=== PATIENT | male | born 1990 | race Caucasian/White ===

== ENCOUNTER 2022-11-11 11:40 | Outpatient (OUT) | payer SELFPAY ==
--- NOTE | 2022-11-11 12:09 | XR_ITS ---
The [address] [address] Patient Name: TERRELL BRASWELL MRN: [id number] date: 1990 Sex: M Assigned Patient Location: LAB Current Patient Location: LAB Accession/Order Number: [id number] Exam Date: 11/11/2022 12:31 Report Date: 11/11/2022 12:38 At the request of: YANNICK PLATA Procedure: XR chest 2V EXAM: XR chest 2V HISTORY: R22.2 COMPARISON: None. TECHNIQUE: Upright PA and lateral chest x-ray FINDINGS: The heart is not enlarged and the vasculature is not distended. No acute infiltrate, effusion or pneumothorax is identified. Mild scoliosis the spine is noted. A metallic foreign body projects over the right scapula. XR/XR chest 2V IMPRESSION: No acute infiltrate or evidence of cardiac decompensation. If the reported lump on the sternum is soft tissue, then ultrasound is recommended. A CT study of the chest without contrast may also be helpful. Electronically authenticated by: KATIE MENDOZA Date: 11/11/2022 12:38
[2022-11-11 12:20] LABS: Basophils Percent Auto 0.6 % (0.2-2.0); Eosinophils Absolute Auto 0.1 10^3/uL (0.0-0.7); Eosinophils Percent Auto 2.5 % (0.9-7.0); Hematocrit 44.7 % (42.0-54.0); Hemoglobin 15.9 g/dL (14.0-18.0); Immature Granulocytes Abs Auto 0.01 10^3/uL (0.00-0.03); Immature Granulocytes Pct Auto 0.2 % (0.0-0.5); Lymphocytes Absolute Auto 1.4 10^3/uL (1.2-3.8); Lymphocytes Percent Auto 29.5 % (20.5-60.0); Mean Corpuscular HGB Conc 35.6 g/dL (29.9-35.2); Mean Corpuscular Hemoglobin 30.9 pg (25.9-34.0); Mean Platelet Volume 9.6 fL (9.5-13.5); Monocytes Absolute Auto 0.4 10^3/uL (0.3-0.8); Monocytes Percent Auto 9.3 % (1.7-12.0); Neutrophils Absolute Auto 2.7 10^3/uL (1.4-6.5); Neutrophils Percent Auto 57.9 % (43.0-75.0); Platelet Count 183 10^3/uL (150-450); Red Blood Count 5.14 10^6/uL (4.70-6.10); White Blood Count 4.7 10^3/uL (4.0-11.0)
[2022-11-11 12:28] LABS: Estimated Average Glucose 100 mg/dL; Glycohemoglobin A1C 5.1 % (4.5-6.2)
[2022-11-11 12:51] LABS: Alanine Aminotransferase 21 U/L (16-63); Albumin Globulin Ratio 1.2; Albumin Level 4.1 g/dL (3.4-5.0); Alkaline Phosphatase 87 U/L (46-116); Anion Gap 11.2; Aspartate Amino Transferase 16 U/L (15-37); BUN Creatinine Ratio 15.8; Bilirubin Total 1.6 mg/dL (0.2-1.0); Calcium 8.5 mg/dL (8.5-10.1); Chloride 103 mmol/L (98-107); Chol HDL Ratio 4.6; Cholesterol 190 mg/dL (<=200); Estimated GFR (African America >60 (>=60); Estimated GFR (Non-African Ame >60 (>=60); Globulin 3.4 g/dL; Glucose 99 mg/dL (74-106); HDL Cholesterol 41 mg/dL (40-60); LDL Cholesterol Calculated 132.8 mg/dL; Potassium 4.2 mmol/L (3.5-5.1); Sodium 139 mmol/L (136-145); Total Protein 7.5 g/dL (6.4-8.2); Triglycerides 81 mg/dL (<=150); VLDL CHOLESTEROL 16.2 mg/dL
[2022-11-12 06:11] LABS: HCV Ab Non Reactive (Non Reactive); HIV Ab/p24 Ag Screen Non Reactive (Non Reactive)
== END 2022-11-11 11:41 | disposition home or self-care (01) ==
PROVIDERS: PCP Nurse Practitioner Primary Care; Visit Provider Nurse Practitioner Primary Care
DX: Z00.00 Encounter for general adult medical examination without abnormal findings (principal); R22.2 Localized swelling, mass and lump, trunk; Z13.6 Encounter for screening for cardiovascular disorders; Z11.59 Encounter for screening for other viral diseases
CPT/HCPCS: 36415; 71046; 80053; 80061; 83036; 85025; 86803; 87389

== ENCOUNTER 2022-11-29 14:04 | Outpatient (OUT) | payer BC, SELFPAY ==
--- NOTE | 2022-11-29 14:10 | CT_ITS ---
The [address] [address] Patient Name: TERRELL BRASWELL MRN: [facility]:[id number] date: 1990 Sex: M Assigned Patient Location: CT Current Patient Location: CT Accession/Order Number: [id number] Exam Date: 11/29/2022 14:15 Report Date: 11/29/2022 15:17 At the request of: YANNICK PLATA Procedure: CT chest wo con EXAM: CT chest wo con HISTORY: Chest Wall Mass R22.2 COMPARISON: None. TECHNIQUE: Axial CT images were obtained of the chest without intravenous contrast. Multiplanar reconstructions were performed. CHEST FINDINGS: Lungs/Pleura: The lungs are clear. No pleural effusion or pneumothorax. Cardiovascular: The heart is normal in size. No coronary artery calcifications are identified. The aorta and pulmonary arteries are unremarkable. Pericardium: No effusion. Mediastinum: Unremarkable. Lymph Nodes: No lymph node enlargement identified on this nonenhanced CT. Bones: No acute osseous abnormality. There is a dextroscoliosis of the upper thoracic spine. Soft tissues: No mass lesion identified in the area of clinical concern at the anterior aspect of the lower chest. The palpable finding may be the xiphoid process of the sternum. Upper Abdomen: Unremarkable. CT/CT chest wo con IMPRESSION: 1. No acute abnormality of the chest. 2. No mass lesion identified in the region of clinical concern. The palpable finding may be the xiphoid process of the sternum. 3. Mild scoliosis of the upper thoracic spine. Electronically authenticated by: MOUNA JIMENEZ Date: 11/29/2022 15:17
== END 2022-11-29 14:05 | disposition home or self-care (01) ==
LOC: CT 14:06
PROVIDERS: PCP Nurse Practitioner Primary Care; Visit Provider Nurse Practitioner Primary Care
DX: R22.2 Localized swelling, mass and lump, trunk (principal)
CPT/HCPCS: 71250